=== PATIENT | female | born 1990 | race Caucasian/White ===

== ENCOUNTER 2021-05-19 02:57 | Emergency (ER) | payer OTHER ==
[2021-05-19] MEDS ORDERED: ACETAMINOPHEN 325 MG TABLET (FP) PO ONE (03:51)
[2021-05-19] MEDS ORDERED: SODIUM CHLORIDE 0.9% 500 ML INFUS.BAG IV ONE (03:51)
[2021-05-19 04:06] VITALS: TEMP 98.7; BMI 35.6
[2021-05-19 04:24] LABS: BASO % 0.8 % (0-2.0); EOS % 2.3 % (0-4.5); HEMATOCRIT 34.6 % (32.4-45.2); HEMOGLOBIN 11.3 GM/dL (10.7-15.3); LYMPH % 24.9 % (8-40); MCH 26.1 pg (25.7-33.7); MCHC 32.6 g/dl (32.0-36.0); MEAN CELL VOLUME 80.1 fl (80-96); MEAN PLT VOLUME 8.2 fl (7.5-11.1); MONO % 9.6 % (3.8-10.2); NEUT % 62.4 % (42.8-82.8); PLATELET COUNT 397 10^3/uL (134-434); RBC 4.32 M/mm3 (3.60-5.2); RDW 13.3 % (11.6-15.6); WHITE BLOOD COUNT 12.8 K/mm3 (4.0-10.0)
[2021-05-19 04:46] LABS: ALBUMIN 3.6 g/dl (3.4-5.0); BLOOD UREA NITROGEN 11.7 mg/dL (7-18); MAGNESIUM 2.1 mg/dL (1.8-2.4)
[2021-05-19 04:49] LABS: CREATININE 0.5 mg/dL (0.55-1.3)
[2021-05-19 04:51] LABS: BILIRUBIN,TOTAL 0.6 mg/dL (0.2-1)
[2021-05-19 05:46] LABS: EPI CELLS 21 /uL (0-25.1); HYALINE CASTS 1 /uL (0-3.1); URINE APPEARANCE CLEAR; URINE BACTERIA 248 /uL (0-1359); URINE BILIRUBIN NEGATIVE (NEGATIVE); URINE COLOR YELLOW; URINE GLUCOSE (UA) NEGATIVE (NEGATIVE); URINE KETONE TRACE (NEGATIVE); URINE LEUK ESTERASE NEGATIVE (NEGATIVE); URINE NITRITE NEGATIVE (NEGATIVE); URINE PROTEIN 1+ (NEGATIVE); URINE RBC 279 /uL (0-23.9); URINE UROBILINOGEN 0.2 mg/dL (0.2-1.0); URINE WBC 42 /uL (0-25.8)
[2021-05-19] MEDS ORDERED: CEFTRIAXONE 1,000 MG in DEXTROSE 5%-WATER - 50 ML IVPB ONE (05:50)
[2021-05-19] MEDS ORDERED: KETOROLAC TROMETHAMINE 30 MG/1 ML VIAL IVPUSH ONE (05:51)
[2021-05-19] MEDS ORDERED: KETOROLAC TROMETHAMINE 30 MG/1 ML VIAL ONE (05:54)
[2021-05-19] MEDS ORDERED: CEFTRIAXONE 1 GM/50 ML BAG ONE (05:54)
[2021-05-19] MEDS ORDERED: ONDANSETRON 4 MG/2 ML VIAL IVPUSH ONE (06:24)
[2021-05-19] MEDS ORDERED: ONDANSETRON 4 MG/2 ML VIAL ONE (06:28)
[2021-05-19 06:55] VITALS: BP 120/73; PULSE 69
== END 2021-05-19 06:55 | disposition home or self-care (01) ==
LOC: JER 02:57
PROC: 3E03329 Introduction of Other Anti-infective into Peripheral Vein, Percutaneous Approach (ICD-10-PCS; principal; 2021-05-19)
PROC: 3E0333Z Introduction of Anti-inflammatory into Peripheral Vein, Percutaneous Approach (ICD-10-PCS; 2021-05-19)
PROC: 3E033GC Introduction of Other Therapeutic Substance into Peripheral Vein, Percutaneous Approach (ICD-10-PCS; 2021-05-19)
DX: N13.2 Hydronephrosis with renal and ureteral calculous obstruction (principal); N39.0 Urinary tract infection, site not specified
CPT/HCPCS: 36415; 74176-TC; 80053; 81003; 83735; 84703; 85025; 87086; 96374; 96375; 99284-25

== ENCOUNTER 2021-10-20 16:43 | Observation (INO) | payer OTHER ==
[2021-10-20 16:55] VITALS: BMI 43.5
[2021-10-20 18:42] LABS: BASO % 0.3 % (0-2.0); EOS % 0.2 % (0-4.5); LYMPH % 17.7 % (8-40); MCH 21.4 pg (25.7-33.7); MCHC 30.2 g/dl (32.0-36.0); MEAN CELL VOLUME 70.7 fl (80-96); MONO % 4.4 % (3.8-10.2); NEUT % 77.4 % (42.8-82.8); PLATELET COUNT 623 10^3/uL (134-434); RBC 2.54 M/mm3 (3.60-5.2); RDW 21.6 % (11.6-15.6); WHITE BLOOD COUNT 13.6 K/mm3 (4.0-10.0)
[2021-10-20 18:58] LABS: HEMOGLOBIN 5.4 GM/dL (10.7-15.3)
[2021-10-20 19:03] LABS: CALCIUM 9.2 mg/dL (8.5-10.1)
[2021-10-20 19:04] LABS: ALBUMIN 3.5 g/dl (3.4-5.0); BLOOD UREA NITROGEN 9.7 mg/dL (7-18); MAGNESIUM 2.1 mg/dL (1.8-2.4)
[2021-10-20 19:05] LABS: INR 1.17 (0.83-1.09); PROTHROMBIN TIME (PATIENT) 13.5 SEC (9.7-13.0)
[2021-10-20 19:07] LABS: CREATININE 0.5 mg/dL (0.55-1.3)
[2021-10-20 19:08] LABS: ACTIVATED PTT 32.2 SECONDS (25.2-36.5); TOT PROT 7.5 g/dl (6.4-8.2)
[2021-10-20 19:09] LABS: BILIRUBIN,TOTAL 0.6 mg/dL (0.2-1)
[2021-10-20] MEDS ORDERED: ACETAMINOPHEN INJECTION 100 ML IVPB ONE (21:35)
[2021-10-20] MEDS ORDERED: ACETAMINOPHEN 1000 MG/100 ML BAG IVPB ONE (21:35)
[2021-10-20 21:43] LABS: ANISOCYTOSIS 1+; MACROCYTOSIS 0; OVALOCYTE 1+; PLATELET ESTIMATE INCREASED; TEAR DROP CELLS 1+
[2021-10-21 07:58] LABS: HEMATOCRIT 22.8 % (32.4-45.2); HEMOGLOBIN 7.3 GM/dL (10.7-15.3); MCH 24.5 pg (25.7-33.7); MCHC 31.9 g/dl (32.0-36.0); MEAN CELL VOLUME 76.9 fl (80-96); MEAN PLT VOLUME 7.1 fl (7.5-11.1); PLATELET COUNT 541 10^3/uL (134-434); RBC 2.96 M/mm3 (3.60-5.2); RDW 23.6 % (11.6-15.6); WHITE BLOOD COUNT 11.2 K/mm3 (4.0-10.0)
[2021-10-21 08:35] LABS: CALCIUM 8.5 mg/dL (8.5-10.1)
[2021-10-21 08:36] LABS: ALBUMIN 3.3 g/dl (3.4-5.0); BLOOD UREA NITROGEN 12.8 mg/dL (7-18); MAGNESIUM 2.1 mg/dL (1.8-2.4)
[2021-10-21 08:39] LABS: CREATININE 0.5 mg/dL (0.55-1.3); PHOSPHOROUS 3.2 mg/dL (2.5-4.9)
[2021-10-21 08:40] LABS: TOT PROT 6.9 g/dl (6.4-8.2)
[2021-10-21] MEDS ORDERED: IRON SUCROSE INJECTION 100 MG in SODIUM CHLORIDE 95 ML IVPB ONE (09:00)
[2021-10-21] MEDS ORDERED: FERRIC CARBOXYMALTOSE 750 MG in SODIUM CHLORIDE 250 ML IVPB ONE (16:00)
[2021-10-21 17:23] VITALS: BP 124/73; PULSE 97; TEMP 98.5
== END 2021-10-21 19:15 | disposition home or self-care (01) ==
LOC: JER 16:43 → JERBED 19:21 → J7W 10-21 02:35
PROVIDERS: ADMIT Internal Medicine
PROC: 30233N1 Transfusion of Nonautologous Red Blood Cells into Peripheral Vein, Percutaneous Approach (ICD-10-PCS; principal; 2021-10-20)
DX: D50.0 Iron deficiency anemia secondary to blood loss (chronic) (principal); D25.9 Leiomyoma of uterus, unspecified; E66.01 Morbid (severe) obesity due to excess calories; Z68.41 Body mass index [BMI] 40.0-44.9, adult; J45.909 Unspecified asthma, uncomplicated; Z87.898 Personal history of other specified conditions; Z88.0 Allergy status to penicillin; R00.0 Tachycardia, unspecified
CPT/HCPCS: 36415; 36430; 36511; 71045-TC-FY; 80053; 83735; 84100; 85025; 85027; 85610; 85730; 86850; 86900; 86901; 86922; 87040; 93005; 93010; 96365; 96367; 96375; 99285-25; C9803; G0378; J0131; J1439; J1756; P9016; P9038; P9058; U0003; U0005

== ENCOUNTER 2022-03-08 11:13 | Emergency (ER) | payer OTHER ==
[2022-03-08 11:46] VITALS: BP 140/87; PULSE 95; TEMP 97.7; BMI 43.5
[2022-03-08] MEDS ORDERED: IBUPROFEN 600 MG TABLET (FP) PO ONE ×2 (12:49→12:51)
[2022-03-08] MEDS ORDERED: DIPHTH,PERTUSS(ACELL),TET 0.5 ML DISP.SYRIN IM ONE ×2 (12:55→12:58)
== END 2022-03-08 14:15 | disposition home or self-care (01) ==
LOC: JER 11:13 → JERFT 11:13
PROC: 3E0234Z Introduction of Serum, Toxoid and Vaccine into Muscle, Percutaneous Approach (ICD-10-PCS; principal; 2022-03-08)
DX: S61.031A Puncture wound without foreign body of right thumb without damage to nail, initial encounter (principal); W46.1XXA Contact with contaminated hypodermic needle, initial encounter
CPT/HCPCS: 73130-TC-RT-FY; 73140-TC-RT-FY; 90471; 90715; 99284-25

== ENCOUNTER 2022-11-10 01:11 | Emergency (ER) | payer OTHER ==
[2022-11-10 01:23] VITALS: BP 127/89; PULSE 103; RESP 20; BMI 45.1
[2022-11-10 01:37] VITALS: TEMP 98.1
[2022-11-10] MEDS ORDERED: DEXAMETHASONE SOD PHOSPHATE 10 MG/1 ML VIAL IM ONE (02:21)
[2022-11-10] MEDS ORDERED: ALBUTEROL SO4 2.5/IPRATROPIUM 0.5 INH SOL 3 ML VIAL.NEB. NEB ONE ×2 (02:22→02:34)
[2022-11-10] MEDS ORDERED: ONDANSETRON *ODT* 4 MG TABLET SL ONE (02:33)
[2022-11-10] MEDS ORDERED: DEXAMETHASONE SOD PHOSPHATE 10 MG/1 ML VIAL ONE ×2 (02:34→02:40)
[2022-11-10] MEDS ORDERED: ONDANSETRON *ODT* 4 MG TABLET ONE (02:40)
== END 2022-11-10 03:37 | disposition home or self-care (01) ==
LOC: JER 01:11
PROC: 3E023GC Introduction of Other Therapeutic Substance into Muscle, Percutaneous Approach (ICD-10-PCS; principal; 2022-11-10)
PROC: 3E0F7GC Introduction of Other Therapeutic Substance into Respiratory Tract, Via Natural or Artificial Opening (ICD-10-PCS; 2022-11-10)
DX: R05.9 Cough, unspecified (principal)
CPT/HCPCS: 0241U-QW; 99284-25; J1100; Q0162